=== PATIENT | female | born 1950 | race Caucasian/White ===

== ENCOUNTER 2024-12-12 13:23 | Outpatient (CLI) | payer MEDICARE, OTHER, SELFPAY ==
--- NOTE | ~2024-12-12 | MR_ITS ---
EXAMINATION: MR humerus RT wo/w con DATE: 12/12/2024 14:14 INDICATION: Right humeral pain. Nodule. TECHNIQUE: Magnetic resonance imaging (MRI) of the right humerus was performed without and with 13 mL Multihance intravenous contrast. A marker was placed over the region of concern. Sequences included axial, sagittal and coronal T1-weighted FSE and fluid sensitive FSE STIR, axial T1-weighted FS FSE a nd post contrast axial and coronal T1-weighted FS FSE. COMPARISON: None. FINDINGS: Bone alignment is normal. Normal bone marrow signal throughout with no reactive edema, fracture or pa thologic marrow replacing process. 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 Glenohumeral joint space appears normal. No joint effusions. There is a tear of the long head maryann ps tendon with the distal tear margin at the level of the intertubercular groove with prominent surro unding enhancing bicipital tenosynovitis. There is suggestion of some rotator cuff tendinopathy witho ut definitive tear although assessment is significantly limited by the large [id number] and the po sitioning at the margin of the field of imaging where there is some signal loss. Musculature of the r ight upper arm appears normal. No abnormal masses identified. No pathologically enlarged right axilla ry lymphadenopathy. IMPRESSION: 1. Bicipital tenosynovitis with tear of the long head biceps tendon. 2. No abnormal masses or pathologically enlarged lymphadenopathy. 3. Suggestion of rotator cuff tendinopathy without discrete tear although evaluation is significantly more limited than on a dedicated shoulder MRI. Reviewed, dictated and finalized at location A. [employer] IMPRESSION: 1. Bicipital tenosynovitis with tear of the long head biceps tendon. 2. No abnormal masses or pathologically enlarged lymphadenopathy. 3. Suggestion of rotator cuff tendinopathy without discrete tear although evalu ation is significantly more limited than on a dedicated shoulder MRI.
== END 2024-12-12 13:24 | disposition home or self-care (01) ==
PROVIDERS: PCP Internal Medicine; Visit Provider Dermatology
DX: M75.21 Bicipital tendinitis, right shoulder (principal)
CPT/HCPCS: 73220; A9577

== ENCOUNTER 2025-02-07 09:49 | Outpatient (CLI) | payer MEDICARE, OTHER, SELFPAY ==
--- NOTE | ~2025-02-07 | MM_ITS ---
EXAMINATION: MM screening raina BI w shane HISTORY: Screening TECHNIQUE: Craniocaudal and mediolateral oblique 3-D tomosynthesis images were obtained and synthetic 2-D images were generated. CAD analysis was submitted and interpreted. COMPARISON: No prior mammogram is available for comparison at this institution. BREAST PARENCHYMAL COMPOSITION: Not Dense: The breasts are almost entirely fatty. FINDINGS: There is no evidence of suspicious mass, calcification, or architectural distortion to sugg est malignancy in either breast. There has been no suspicious interval change. IMPRESSION: 1. No mammographic evidence of malignancy. 2. Recommend routine screening mammography in one year. BI-RADS Category 1: Negative Reviewed, dictated and finalized at location B.
== END 2025-02-07 09:50 | disposition home or self-care (01) ==
LOC: MICIMG 09:50
PROVIDERS: PCP Internal Medicine; Visit Provider Obstetrics & Gynecology
DX: Z12.31 Encounter for screening mammogram for malignant neoplasm of breast (principal)
CPT/HCPCS: 77063; 77067

== ENCOUNTER 2025-02-27 10:08 | Outpatient (CLI) | payer MEDICARE, OTHER, SELFPAY ==
--- NOTE | ~2025-02-27 | XR_ITS ---
Clinical Indication: Acute bronchitis PA and lateral views of the chest: Comparison: None Findings: The lungs are clear, without evidence of focal consolidation or pleural effusion. Cardiome diastinal silhouette is within normal limits. Bones and soft tissues are unremarkable. Impression: Normal chest. Reviewed, dictated and finalized at location . Impression: Normal chest.
== END 2025-02-27 10:09 | disposition home or self-care (01) ==
LOC: MICIMG 10:11
PROVIDERS: PCP Internal Medicine; Visit Provider Internal Medicine
DX: J20.0 Acute bronchitis due to Mycoplasma pneumoniae (principal); J20.1 Acute bronchitis due to Hemophilus influenzae; J20.2 Acute bronchitis due to streptococcus; J20.3 Acute bronchitis due to coxsackievirus; J20.4 Acute bronchitis due to parainfluenza virus; J20.5 Acute bronchitis due to respiratory syncytial virus; J20.6 Acute bronchitis due to rhinovirus; J20.7 Acute bronchitis due to echovirus; J20.8 Acute bronchitis due to other specified organisms
CPT/HCPCS: 71046